=== PATIENT | female | born 1995 | race Two or more races ===

== ENCOUNTER 2016-03-24 18:36 | Emergency (ER) | payer MEDICAID, OTHER ==
[~2016-03-24] VITALS: Ht 177.8 cm; Wt 76.5 kg
[~2016-03-24 18:36] MED LIST: FER325 PO; PEN500 PO; PREN-39 PO; TRAM50TA2 PO
[2016-03-24 19:03] VITALS: Ht 177.8 cm; Wt 76.5 kg
[2016-03-24] MEDS ORDERED: AMOX1TAB10 PO (20:27)
[2016-03-24] MEDS ORDERED: IBUP-1542 PO (20:27)
[2016-03-24] MEDS ORDERED: AMOXICILLIN/CLAV 875 MG TAB PO ONE (20:30)
[2016-03-24] MEDS ORDERED: DIPHTH/TET/ACEL PERTUSS (ADULT) 0.5 ML VIAL IM* ONE (20:30)
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
== END 2016-03-24 20:39 | disposition home or self-care (01) ==
LOC: FTE 18:36
DX: S21.052A Open bite of left breast, initial encounter (principal); S61.552A Open bite of left wrist, initial encounter; S41.152A Open bite of left upper arm, initial encounter; Y04.1XXA Assault by human bite, initial encounter; Z23 Encounter for immunization; Z87.891 Personal history of nicotine dependence
CPT/HCPCS: 90471; 90715; Z7502; Z7610

== ENCOUNTER 2016-09-01 17:55 | Emergency (ER) | payer MEDICAID, OTHER ==
[~2016-09-01] VITALS: Ht 175.3 cm; Wt 94.0 kg
[~2016-09-01 17:55] MED LIST changes: +AMOX1TAB10 PO; +IBUP-1542 PO
[2016-09-01 17:58] VITALS: Ht 175.3 cm; Wt 94.0 kg
[2016-09-01] MEDS ORDERED: AMOX250C PO (18:11)
[2016-09-01] MEDS ORDERED: HYDR-906 PO (18:11)
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
== END 2016-09-01 18:11 | disposition home or self-care (01) ==
LOC: E/R 17:55
DX: K08.89 Other specified disorders of teeth and supporting structures (principal); Z87.891 Personal history of nicotine dependence
CPT/HCPCS: 99284

== ENCOUNTER 2016-10-15 21:26 | Outpatient (CLI) | payer OTHER ==
[~2016-10-15] VITALS: Ht 175.3 cm; Wt 102.8 kg
[~2016-10-15 21:26] MED LIST changes: +AMOX250C PO; +HYDR-906 PO
[2016-10-15 21:44] VITALS: Ht 175.3 cm; Wt 102.8 kg
--- NOTE | 2016-10-15 22:09 | RADRPT ---
PROCEDURE: Obstetrical ultrasound for biophysical profile CLINICAL INDICATION: Biophysical profile. . TECHNIQUE: Obstetrical ultrasound of the uterus for biophysical profile. Transabdominal views are obtained. COMPARISON: 03/19/2015 FINDINGS: Single intrauterine gestation. Presentation: Cephalic. Placenta: Fundal No evidence of placental abruption. No evidence of placenta previa. breathing movement = 2/2 tone = 2/2 motion = 2/2 LINH = 2/2 LINH = 15.5 cm heart rate: 127 beats per minute IMPRESSION: Single intrauterine gestation. Biophysical profile 10/21 RPTAT: AADD .Minh Levi MD, MD Date Time Electronically viewed and signed by .Minh Levi MD, on 10/15/2016 22:08 .B/
[2016-10-15 23:15] LABS: ADD UMIC YES; UR ASCORBIC ACID NEGATIVE (NEGATIVE); UR BILIRUBIN (Dip) NEGATIVE (NEGATIVE); UR BLOOD (Dip) NEGATIVE (NEGATIVE); UR CLARITY SLIGHTLY CLOUDY (CLEAR); UR COLOR YELLOW (YELLOW); UR GLUCOSE (Dip) NEGATIVE (NEGATIVE); UR KETONES (Dip) 1+ mg/dL (NEGATIVE); UR LEUKOCYTE ESTERASE (Dip) 1+ Leu/ul (NEGATIVE); UR MUCUS FEW /HPF (NONE SEEN); UR NITRITE (Dip) NEGATIVE (NEGATIVE); UR RBC 1 /HPF (0-5); UR SPECIFIC GRAVITY (Dip) 1.031 (1.003-1.030); UR SQUAMOUS EPITHELIAL CELL MODERATE /HPF (FEW); UR TOTAL PROTEIN (Dip) 2+ mg/dl (NEGATIVE); UR UROBILINOGEN (Dip) NEGATIVE (NEGATIVE)
--- NOTE | 2016-10-15 23:17 | PN ---
Triage Information Date/Time 20 years old with IUP at 37 weeks and care with [facility] and low KYUNG-was sent to Triage for NST/ BPP. Patient had abnormal serum integrated testing concerning for possible risk for Down syndrome status post genetic counseling and ultrasound by maternal medicine specialist. She declined amniocentesis. Was recommended to continue NST/BPP twice a week. Had a recent ultrasound with perinatologist that showed normal interval growth Denies any vaginal bleeding, LOF or decreased movement. Patient has no other complaint Reason for visit: testing Weeks of Gestation 37 weeks /Para Diabetes: none Hypertention: none Objective Heart Rate: 130's Contractions: None Exam heart tracing: Category 1 initially contractions every 2-3 minutes Initially contractions every 3-4 minutes noted that resolved. Patient did not feel any contractions LINH: 15.5 BPP: 10/21 Assessment/Plan IUP at 37 weeks Low PaPPA,. Abnormal serum integrated testing. Increased risk for Down syndrome Status post genetic counseling declined amniocentesis. no evidence of IUGR preeclampsia Normal interval growth NST BPP reassuring Patient will be discharged home labor precaution and kick counts and follow-up with her OB clinic for testing twice a week discussed with the patient Patient had a history of . Plan to have repeat Patient verbalized understanding All questions were answered SALAS LOMAS MD Oct 15, 2016 23:13
--- NOTE | 2016-10-15 23:35 | TRIAGE ---
OB Triage Datetime Report Generated by CPN: 10/15/2016 23:34 Datetime: 10/15/2016 23:12 Stage of : OB Triage Datetime: 10/15/2016 22:06 Assessment Type: Triage Maternal Assessment Level of Consciousness: Fully Conscious Headache: Denies Blurred Vision: No Respiratory Effort: Unlabored; Regular Rhythm; Equal Expansion Nausea/Vomiting: Denies RUQ Epigastric Pain: Denies Facial Edema: None Fall Risk Assessment History of Falling: (0) No Secondary Diagnosis: (0) No Ambulatory Aid: (0) Bedrest/Nurse Assist IV Therapy: (0) No Gait: (0) Normal/Bedrest/Immobile Mental Status: (0) Oriented to Own Ability Fall Score: 0 Fall Risk Score Definition: No Risk: No action required Datetime: 10/15/2016 22:05 EGA: 37.6 Datetime: 10/15/2016 22:04 Time of Arrival: 10/15/2016 21:25 Arrived By: Ambulatory Arrived From: Home Chief Complaint: SENT IN FROM CLINIC FOR LINH/BPP, PT. STARTING NST CLNIC FOR LOW KYUNG-A Movement: Present Contractions: Denies/Absent Rupture of Membranes: Denies Vaginal Discharge: Denies Recent Sexual Intercouse: Denies Abdominal Trauma: Not Applicable Patient Complaints: None Time Provider Notified: 10/15/2016 22:20 Provider Notified: ABEBE Initial Plan: MASSIMO LE, CALL OB
== END 2016-10-15 23:12 | disposition home or self-care (01) ==
LOC: OBT 21:26 → L-D 21:28 → OBT 23:12
PROVIDERS: ATTEND Obstetrics & Gynecology
DX: O28.1 Abnormal biochemical finding on antenatal screening of mother (principal)
CPT/HCPCS: 76818; 81001; Z7500; G0463

== ENCOUNTER 2016-10-21 17:02 | Inpatient (IN) | payer OTHER ==
[~2016-10-21] VITALS: Ht 175.3 cm; Wt 104.2 kg
[~2016-10-21 17:02] MED LIST changes: -AMOX1TAB10 PO; -AMOX250C PO; -FER325 PO; -HYDR-906 PO; -IBUP-1542 PO; -PEN500 PO; -TRAM50TA2 PO
[2016-10-21 17:53] VITALS: BP 126/71; PULSE 75; RESP 16; Ht 175.3 cm; Wt 104.2 kg
[2016-10-21] MEDS ORDERED: RTPRO5 IH (17:56)
[2016-10-21] MEDS ORDERED: LACTATED RINGER'S 1,000 ML IV SCH (18:28)
[2016-10-21] MEDS ORDERED: OXYTOCIN 30 UNITS/LR 500 ML IV PRN ×2 (18:30→23:30)
[2016-10-21] MEDS ORDERED: MISOPROSTOL 200 MCG TAB PR PRN ×2 (18:30→23:30)
[2016-10-21] MEDS ORDERED: METHYLERGONOVINE 0.2 MG INJ IM PRN ×2 (18:30→23:30)
[2016-10-21] MEDS ORDERED: CARBOPROST 250 MCG INJ IM PRN ×2 (18:30→23:30)
[2016-10-21] MEDS ORDERED: OXYTOCIN 30 UNITS/LR 500 ML IV SCH (18:30)
[2016-10-21] MEDS ORDERED: CEFAZOLIN 2 GM/50 ML (PMX) 50 ML IV SCH (18:30)
--- NOTE | 2016-10-21 18:43 | TRIAGE ---
OB Triage Datetime Report Generated by CPN: 10/21/2016 18:43 Datetime: 10/21/2016 18:20 Labor Evaluation Frequency: occ Monitor Mode: External Duration (sec)2399: 50-60 Quality: Mild Pattern: Normal: <= 5 Contractions in 10 Minutes Resting Tone Knowles: Relaxed Heart Rate FHR Baseline Rate: 125 Monitor Mode: External US Variability: Moderate 6-25 bpm Accelerations: 15X15 Decelerations: Prolonged Category: Category II Pain Assessment Pain Scale: 5 Pain Presence: Intermittent Pain Type: Sharp Pain Location: Back; Left Leg Pain Goal: 3 Datetime: 10/21/2016 17:45 Assessment Type: Triage Maternal Assessment Level of Consciousness: Fully Conscious DTR's/Clonus: DTRs 2+; No Clonus Headache: Denies Blurred Vision: No Respiratory Effort: Unlabored; Regular Rhythm; Equal Expansion Breath Sounds, Left: Clear and Equal Breath Sounds, Right: Clear and Equal Nausea/Vomiting: Denies RUQ Epigastric Pain: Denies Lower Extremities Edema: None Degree: None Upper Extremities Edema: None Degree: None Facial Edema: None Fall Risk Assessment History of Falling: (0) No Secondary Diagnosis: (0) No Ambulatory Aid: (0) Bedrest/Nurse Assist IV Therapy: (0) No Gait: (0) Normal/Bedrest/Immobile Mental Status: (0) Oriented to Own Ability Fall Score: 0 Fall Risk Score Definition: No Risk: No action required Datetime: 10/21/2016 17:41 Time of Arrival: 10/21/2016 17:00 EGA: 38.5 Arrived By: Ambulatory Arrived From: Home Chief Complaint: Pt. came to hospital c/o left low back sharp pain, radiated to left leg, lower ab dominal pain since last night, pain getting worse when walking and moving Movement: Present Contractions: Denies/Absent Rupture of Membranes: Denies Vaginal Bleeding: None Vaginal Discharge: Denies Recent Sexual Intercouse: Denies Abdominal Trauma: Not Applicable Patient Complaints: Back Pain Time Provider Notified: 10/21/2016 17:45 Provider Notified: Datetime: 10/15/2016 22:06 Fall Score: 0 Fall Risk Score Definition: No Risk: No action required Datetime: 10/15/2016 22:05 EGA: 37.6
[2016-10-21] MEDS ORDERED: CEFAZOLIN 1 GM INJ ONE (18:45)
[2016-10-21 18:56] LABS: BASOPHILS % 0.2 % (0.0-2.0); EOSINOPHILS # 0.4 10^3/ul (0.0-0.5); EOSINOPHILS % 2.8 % (0.0-7.0); HEMATOCRIT 36.5 % (37.0-47.0); HEMOGLOBIN 12.8 g/dl (12.0-16.0); LYMPHOCYTES # 1.8 10^3/ul (0.8-2.9); LYMPHOCYTES % 13.5 % (18.0-55.0); MEAN CORPUSCULAR HEMOGLOBIN 33.2 pg (29.0-33.0); MEAN CORPUSCULAR HGB CONC 35.1 g/dl (32.0-37.0); MEAN CORPUSCULAR VOLUME 94.6 fl (72.0-104.0); MEAN PLATELET VOLUME 11.6 fl (7.4-10.4); MONOCYTE # 1.2 10^3/ul (0.3-0.9); MONOCYTES % 8.9 % (0.0-13.0); NEUTROPHIL # 9.6 10^3/ul (1.6-7.5); NEUTROPHILS % 73.5 % (30.0-74.0); PLATELET COUNT 144 10^3/UL (140-415); RED BLOOD COUNT 3.86 10^6/ul (4.20-5.40); RED CELL DISTRIBUTION WIDTH 12.5 % (11.5-14.5); WHITE BLOOD COUNT 13.1 10^3/ul (4.8-10.8)
[2016-10-21] MEDS ORDERED: CITRIC ACID/NA CITRATE 30 ML CUP ONE (18:59)
[2016-10-21] MEDS ORDERED: ONDANSETRON 4 MG INJ IV ONE (19:00)
[2016-10-21] MEDS ORDERED: CITRIC ACID/NA CITRATE 30 ML CUP PO ONE (19:00)
[2016-10-21] MEDS ORDERED: morphine SULFATE/PF (10 MG/10 ML) INJ ONE (19:04)
[2016-10-21] MEDS ORDERED: OXYTOCIN 10 UNIT INJ ONE (19:05)
[2016-10-21] MEDS ORDERED: PHENYLephrine (100 MCG/ML) 5ML SYG ONE (19:05)
[2016-10-21 19:16] LABS: INR 0.92; PROTIME 12.4 Sec (12.2-14.2)
--- NOTE | 2016-10-21 19:30 | HP ---
Date/Time of Note Date/Time of Note DATE: 10/21/16 TIME: 19:19 OB - History Hx of Present Free Text/Dictation 20 years old female 2 para 1 EDC October 30, 2016 history of previous C- section in labor admitted to [facility] being prepared to undergo repeat section while patient was being monitored noted there was a 3 minutes variable deceleration with recovery to base line This patient has been under the care of the [facility] and her is not complicated with gestational diabetes - induced hypertension or any other condition Chief Complaint: 38 weeks 5 days history of previous in labor Estimated Due Date: Oct 30, 2016 : 2 Para: 1 Care: Good Care Medical Complications: None Past Family/Social History * Past Medical, Surgical, Family and Obstetric Histories reviewed from chart. Rubella: immune RPR/VDRL: Negative GBS Status: Negative HBsAG: Negative OB Admission Exam Vital Signs Vital Signs Vital Signs Date Time Temp Pulse Resp B/P Pulse Ox O2 Delivery O2 Flow Rate FiO2 10/21/16 17:53 98.3 75 16 126/71 Physical Exam HEENT: WNL Heart: Rhythm Normal Lungs: Clear, Equal Station: -2 Membranes: Intact Heart Rate: 120's Accelerations: Accelerations Present Decelerations: Variable Decelerations Varibility: Moderate Contractions on Admission: >10 Minutes Apart Intensity: Moderate Last 72 hours Lab Results CBC & BMP 10/21/16 18:00 OB Assessment/Plan Reason for admission: other (Reglan 384/7 weeks history of previous in the) Induction Method: other (38-1/2 weeks previous section in labor) MORGAN GREENWOOD MD Oct 21, 2016 19:29
[2016-10-21 19:36] LABS: BARBITURATES Negative (NEGATIVE); BENZODIAZEPINES Negative (NEGATIVE); CANNABINOIDS Negative (NEGATIVE); COCAINE Negative (NEGATIVE); OPIATES Negative (NEGATIVE)
[2016-10-21] MEDS ORDERED: METOCLOPRAMIDE 10 MG INJ ONE (19:49)
[2016-10-21] MEDS ORDERED: ONDANSETRON 4 MG INJ ONE (19:49)
[2016-10-21] MEDS ORDERED: KETOROLAC 30 MG INJ ONE (19:50)
[2016-10-21] MEDS ORDERED: DEXAMETHASONE 4 MG/ML 1 ML INJ ONE (19:50)
[2016-10-21] MEDS ORDERED: morphine 2 MG INJ IV PRN (20:00)
[2016-10-21] MEDS ORDERED: EPHEDrine SULFATE 50 MG/5 ML SYG IV PRN (20:00)
[2016-10-21] MEDS ORDERED: MEPERIDINE 25 MG INJ IV PRN (20:00)
[2016-10-21] MEDS ORDERED: OXYCODONE/ACETAMINOPHEN (5/325) TAB PO PRN ×2 (20:00)
[2016-10-21] MEDS ORDERED: HYDROmorphONE 1 MG/ML SYG IV PRN ×2 (20:00)
[2016-10-21] MEDS ORDERED: LABETALOL HCL 20MG INJ IV PRN (20:00)
[2016-10-21] MEDS ORDERED: ONDANSETRON 4 MG INJ IV PRN (20:00)
[2016-10-21] MEDS ORDERED: DIPHENHYDRAMINE 50 MG INJ IV PRN ×2 (20:00)
[2016-10-21] MEDS ORDERED: morphine 4 MG/ML VIAL IV PRN (20:00)
[2016-10-21] MEDS ORDERED: NALBUPHINE HCL (10 MG/1 ML) INJ IV PRN (20:00)
[2016-10-21] MEDS ORDERED: NALOXONE (0.4 MG/ML) INJ IV PRN (20:00)
[2016-10-21] MEDS ORDERED: ACETAMINOPHEN 500 MG TAB PO PRN (20:00)
--- NOTE | 2016-10-21 20:15 | OPR ---
Operative Report Planned Procedure Free Text/Dictation 20 years old 2 para 1 EDC October 20 history of previous admitted at [facility] in labor Procedure date Oct 21, 2016 Procedure(s) Repeat Performed by: MORGAN GREENWOOD MD Assisting provider: FRANKI TAY MD Anesthesiologist: SOFIE LEE MD Pre-procedure diagnosis 38-1/2 weeks history of previous in labor Anesthesia Type: spinal Procedure Description Under satisfactory spinal [] anesthesia, the patient was prepped and draped and placed in a supine position, tilted to the left. Pfannenstiel incision was made , carried through the subcutaneous tissue. Bleeders brought under control with electrocautery. Fascia incised to the length of the incision. Rectus muscles from the fascia, divided midline. Peritoneum exposed, entered through a transverse incision. Exploration of abdomen revealed gravid uterus. Normal- appearing tubes and ovaries bladder flap was developed. Transverse incision was made in the lower segment of the uterus. Amniotic sac ruptured. Clear [] amniotic fluid noted. Light baby girl was delivered from l occiput posterior position Nasal oropharyngeal suction was performed. The baby was handed to the team for immediate attention patient received 20 units of Pitocin. Th placenta was delivered manually intact. Uterine cavity was cleaned with wet sponge and drainage established. Uterus closed in 2 layers using [] Monocryl #1 in continuous fashion. Peritoneal cavity irrigated with warm saline. Sponge, needle and instrument count reported to be correct. Abdominal peritoneum closed with 2-0 chromic catgut [] continuously. Rectus muscle approximated with [2-0 chromic cat]. Fascia closed with [#1 PDA] subcutaneous tissue approximated and repaired with interrupted 2-0 chromic catgut, skin closed with angela. Estimated blood loss 600 []mL. Urine bag contained [200]mL of clear urine patient tolerated procedure well transferred to recovery room in good condition Post-Procedure Findings: Live Baby girl 9 and9 Complications: None Pt Condition post procedure: stable Physician Certification I, the undersigned physician, hereby certify that I have discussed the procedure described in this consent form with this patient (or the patient's legal veterans contact representative), including: * The risk and benefits of the procedure; * Any adverse reactions that may reasonably be expected to occur; * Any alternative efficacious methods of treatment which may be medically viable ; * The potential problems that may occur during recuperation; * Potential for blood transfusion and associated risks/benefits; and * Any research or economic interest I may have regarding this treatment. I further certify that the patient/legally responsible person was encouraged to ask question and that all questions were answered. MORGAN GREENWOOD MD Oct 21, 2016 20:15
[2016-10-21 22:55] VITALS: BP 133/83; PULSE 66; RESP 19
[2016-10-21 23:30] VITALS: BP 128/74; PULSE 70
[2016-10-21] MEDS ORDERED: LANOLIN 7 GM TUBE TOP PRN (23:30)
[2016-10-21] MEDS ORDERED: CEFAZOLIN 1 GM/50 ML (PMX) 50 ML IVPB SCH (23:30)
[2016-10-21] MEDS: OXYTOCIN 30 UNITS/LR 500 ML IV SCH (23:32)
[2016-10-22 01:00] VITALS: BP 121/59; PULSE 68
[2016-10-22 02:00] VITALS: BP 118/68; PULSE 67; RESP 19
[2016-10-22] MEDS: OXYTOCIN 30 UNITS/LR 500 ML IV SCH ×4 (03:28→15:00)
[2016-10-22 04:00] VITALS: BP 113/65; PULSE 63; RESP 20
[2016-10-22] MEDS: KETOROLAC 30 MG INJ IV PRN ×3 (04:38→18:09)
[2016-10-22 08:00] VITALS: BP 104/60; PULSE 69; RESP 18
[2016-10-22 10:20] LABS: BASOPHILS % 0.2 % (0.0-2.0); EOSINOPHILS % 0.2 % (0.0-7.0); HEMATOCRIT 31.4 % (37.0-47.0); HEMOGLOBIN 10.9 g/dl (12.0-16.0); LYMPHOCYTES # 1.3 10^3/ul (0.8-2.9); LYMPHOCYTES % 7.4 % (18.0-55.0); MEAN CORPUSCULAR HEMOGLOBIN 32.4 pg (29.0-33.0); MEAN CORPUSCULAR HGB CONC 34.7 g/dl (32.0-37.0); MEAN CORPUSCULAR VOLUME 93.5 fl (72.0-104.0); MEAN PLATELET VOLUME 11.6 fl (7.4-10.4); MONOCYTE # 1.2 10^3/ul (0.3-0.9); NEUTROPHIL # 14.8 10^3/ul (1.6-7.5); NEUTROPHILS % 84.2 % (30.0-74.0); PLATELET COUNT 131 10^3/UL (140-415); RED BLOOD COUNT 3.36 10^6/ul (4.20-5.40); RED CELL DISTRIBUTION WIDTH 12.3 % (11.5-14.5); WHITE BLOOD COUNT 17.6 10^3/ul (4.8-10.8)
[2016-10-22 10:22] LABS: POSITIVE DIFF @See below
[2016-10-22] MEDS ORDERED: ONDANSETRON 4 MG INJ IV PRN (12:00)
[2016-10-22 16:45] VITALS: BP 112/55; PULSE 61; RESP 18
[2016-10-22] MEDS ORDERED: HYDROCODONE/APAP (5/325) TAB PO PRN ×2 (19:05)
[2016-10-22] MEDS ORDERED: OXYCODONE/ACETAMINOPHEN (5/325) TAB PO PRN (19:05)
--- NOTE | 2016-10-22 19:39 | OPPN ---
Date/Time of Note Date/Time of Note DATE: 10/22/16 TIME: 19:38 Post-Anesthesia Notes Post-Anesthesia Note Last documented vital signs Vital Signs Date Time Temp Pulse Resp B/P Pulse Ox O2 Delivery O2 Flow Rate FiO2 10/22/16 18:33 Room Air 10/22/16 17:20 98 21 10/22/16 16:45 98.2 61 18 112/55 Activity: WNL Respiratory function: WNL Cardiovascular function: WNL Mental status: Baseline Pain reasonably controlled: Yes Hydration appropriate: Yes Nausea/Vomiting absent: Yes SOFIE LEE MD Oct 22, 2016 19:39
[2016-10-22 20:00] VITALS: BP 111/65; PULSE 55; RESP 20
[2016-10-22] MEDS: SENNA/DOCUSATE NA (8.6MG/50MG) TAB PO SCH (20:46)
[2016-10-22] MEDS: OXYCODONE/ACETAMINOPHEN (5/325) TAB PO PRN (21:33)
[2016-10-22] MEDS: IBUPROFEN 600 MG TAB PO SCH (23:31)
[2016-10-23] MEDS ORDERED: ALBUTEROL 18 GM INHALER INH PRN
[2016-10-23] MEDS: OXYCODONE/ACETAMINOPHEN (5/325) TAB PO PRN ×4 (01:34→19:55)
[2016-10-23 04:00] VITALS: BP 111/55; PULSE 64; RESP 18
[2016-10-23] MEDS: IBUPROFEN 600 MG TAB PO SCH ×4 (05:40→23:31)
[2016-10-23 07:45] VITALS: BP 135/78; PULSE 56; RESP 18
[2016-10-23] MEDS: OXYTOCIN 30 UNITS/LR 500 ML IV SCH ×5 (08:18→18:43)
[2016-10-23] MEDS: SENNA/DOCUSATE NA (8.6MG/50MG) TAB PO SCH ×2 (09:19→21:21)
--- NOTE | 2016-10-23 11:43 | PN ---
Date/Time of Note Date/Time of Note DATE: 10/23/16 TIME: 11:42 OB Subjective Subjective Subjective October 23, 2016 Post C section day 2 Doing Well Afebrile Ambulatory Chest Clear Breasts are soft , Nipples are intact Abdomen is soft Fundus is firm Moderate amount of lochia Incision is clean ,No evidence of infection No calf tenderness No ankle edema New born is doing well, Breast feeding Current Medications Medications (Trade) Dose Ordered Sig/Michela Route PRN Reason Start Time Stop Time Status Last Admin Dose Admin Lactated Ringer's 1,000 ml @ 125 mls/hr Q8H IV 10/21/16 18:28 10/21/16 23:09 DC 10/21/16 18:51 Cefazolin Sodium/ Dextrose 50 ml @ 100 mls/hr ONCE IV 10/21/16 18:30 10/21/16 23:09 DC Oxytocin/Lactated Ringer's 500 ml @ 125 mls/hr ONCE IV 10/21/16 18:30 10/21/16 23:09 DC 10/21/16 20:36 Oxytocin/Lactated Ringer's 500 ml @ 0 mls/hr ONCE PRN IV For Hemorrhage Management 10/21/16 18:30 10/21/16 23:09 DC Methylergonovine Maleate (Methergine) 0.2 mg ONCE PRN IM VAGINAL BLEEDING 10/21/16 18:30 10/21/16 23:09 DC Carboprost Tromethamine (Hemabate) 250 mcg ONCE PRN IM VAGINAL BLEEDING 10/21/16 18:30 10/21/16 23:09 DC Misoprostol (Cytotec) 1,000 mcg ONCE PRN IA VAGINAL BLEEDING 10/21/16 18:30 10/21/16 23:09 DC Ondansetron HCl (Zofran Inj) 4 mg pre-procedure ONCE IV 10/21/16 19:00 10/21/16 19:03 DC Citric Acid/ Sodium Citrate (Bicitra) 30 ml PRE-OP ONCE PO 10/21/16 19:00 10/21/16 19:03 DC 10/21/16 19:04 Citric Acid/ Sodium Citrate (Bicitra) 30 ml STK-MED ONCE .ROUTE 10/21/16 18:59 10/21/16 19:00 DC Morphine Sulfate (Duramorph) 10 mg STK-MED ONCE .ROUTE 10/21/16 19:04 10/21/16 19:05 DC Oxytocin (Oxytocin) 10 units STK-MED ONCE .ROUTE 10/21/16 19:05 10/21/16 19:06 DC Phenylephrine HCl (Ej-Synephrine Inj Syg) 500 mcg STK-MED ONCE .ROUTE 10/21/16 19:05 10/21/16 19:06 DC Oxycodone/ Acetaminophen (Percocet (5/ 325)) 1 tab PACU ORDER PRN PO PAIN LEVEL 1-5 10/21/16 20:00 10/21/16 23:09 DC Oxycodone/ Acetaminophen (Percocet (5/ 325)) 2 tab PACU ORDER PRN PO PAIN LEVEL 6-10 10/21/16 20:00 10/21/16 23:09 DC Ondansetron HCl (Zofran Inj) 4 mg PACU ORDER PRN IV NAUSEA AND/OR VOMITING 10/21/16 20:00 10/22/16 03:00 DC 10/21/16 23:05 Labetalol HCl (Labetalol) 5 mg PACU ORDER PRN IV HIGH BLOOD PRESSURE 10/21/16 20:00 10/21/16 23:09 DC Ephedrine Sulfate 5 mg PACU ORDER PRN IV MAP LESS THAN 60 10/21/16 20:00 10/21/16 23:09 DC Meperidine HCl (Demerol) 25 mg PACU ORDER PRN IV POST-OP RIGORS 10/21/16 20:00 10/21/16 23:09 DC Diphenhydramine HCl (Benadryl) 25 mg PACU ORDER PRN IV PRURITUS 10/21/16 20:00 10/21/16 23:09 DC 10/21/16 20:35 Hydromorphone HCl (Dilaudid) 0.2 mg Q2H PRN IV PAIN LEVEL 1-5 10/21/16 20:00 10/22/16 19:04 DC 10/21/16 21:27 Hydromorphone HCl (Dilaudid) 0.4 mg Q2H PRN IV PAIN LEVEL 6-10 10/21/16 20:00 10/22/16 19:04 DC Morphine Sulfate (morphine) 2 mg Q2H PRN IV PAIN LEVEL 1-5 10/21/16 20:00 10/22/16 19:04 DC Morphine Sulfate (morphine) 4 mg Q2H PRN IV PAIN LEVEL 6-10 10/21/16 20:00 10/22/16 19:04 DC Ketorolac Tromethamine (Toradol) 30 mg Q6H PRN IV PAIN LEVEL 6-10 10/21/16 20:00 10/22/16 19:04 DC 10/22/16 18:09 Acetaminophen (Tylenol Tab) 500 mg Q4H PRN PO PAIN LEVEL 1-3 10/21/16 20:00 10/21/16 23:09 DC Diphenhydramine HCl (Benadryl) 25 mg Q4H PRN IV PRURITUS 10/21/16 20:00 10/22/16 19:04 DC Nalbuphine HCl (Nubain) 10 mg Q4H PRN IV PRURITUS 10/21/16 20:00 10/22/16 19:04 DC Naloxone HCl (Narcan) 0.2 mg Q2M PRN IV FOR RESP RATE 8 OR LESS 10/21/16 20:00 10/22/16 19:04 DC Miscellaneous Information (* Miscellaneous Pharmacy Order) DURAMORPH: 0.2 MG SPI... GIVEN NEURAXIAL XX 10/21/16 20:00 10/21/16 23:09 DC Ondansetron HCl (Zofran Inj) 4 mg STK-MED ONCE .ROUTE 10/21/16 19:49 10/21/16 19:50 DC Metoclopramide HCl (Reglan) 10 mg STK-MED ONCE .ROUTE 10/21/16 19:49 10/21/16 19:50 DC Ketorolac Tromethamine (Toradol) 30 mg STK-MED ONCE .ROUTE 10/21/16 19:50 10/21/16 19:51 DC Dexamethasone (Decadron) 4 mg STK-MED ONCE .ROUTE 10/21/16 19:50 10/21/16 19:51 DC Acetaminophen/ Hydrocodone Bitart (Meridian (5/325)) 1 tab Q4H PRN PO PAIN LEVEL 4-6 10/22/16 19:05 Acetaminophen/ Hydrocodone Bitart (Meridian (5/325)) 2 tab Q4H PRN PO PAIN LEVEL 7-10 10/22/16 19:05 Oxycodone/ Acetaminophen (Percocet (5/ 325)) 1 tab Q4H PRN PO PAIN LEVEL 4-6 10/22/16 19:05 Oxycodone/ Acetaminophen (Percocet (5/ 325)) 2 tab Q4H PRN PO PAIN LEVEL 7-10 10/22/16 19:05 10/23/16 07:18 Ibuprofen (Motrin) 600 mg Q6 PO 10/23/16 00:00 10/23/16 11:31 Simethicone (Mylicon) 160 mg Q8H PRN PO DISTENSION/GAS/BLOATING 10/21/16 23:30 Senna/Docusate Sodium (Senokot-S) 1 tab BID PO 10/22/16 21:00 10/23/16 09:19 Lanolin (Fda-F-Pxglbw) 1 applic BEDSIDE MEDICATION PRN TOP BEDSIDE FOR NICOLAS TO NIPPLES 10/21/16 23:30 10/22/16 04:39 Diphtheria/ Tetanus/Acell Pertussis 0.5 ml 0.5 ml ONCE ONCE IM* 10/24/16 09:00 10/24/16 09:01 Oxytocin/Lactated Ringer's 500 ml @ 0 mls/hr ONCE PRN IV For Hemorrhage Management 10/21/16 23:30 Methylergonovine Maleate (Methergine) 0.2 mg ONCE PRN IM VAGINAL BLEEDING 10/21/16 23:30 Carboprost Tromethamine (Hemabate) 250 mcg ONCE PRN IM VAGINAL BLEEDING 10/21/16 23:30 Misoprostol 1000 mcg 1,000 mcg ONCE PRN IA VAGINAL BLEEDING 10/21/16 23:30 Cefazolin Sodium 50 ml @ 100 mls/hr ONCE IVPB 10/21/16 23:30 10/21/16 23:59 DC 10/21/16 23:48 Oxytocin/Lactated Ringer's 500 ml @ 125 mls/hr Q4H IV 10/21/16 23:04 10/22/16 15:00 Ondansetron HCl (Zofran Inj) 4 mg Q4H PRN IV NAUSEA AND/OR VOMITING 10/22/16 12:00 10/22/16 12:16 Cefazolin Sodium (Ancef) 2 gm STK-MED ONCE .ROUTE 10/21/16 18:45 10/22/16 17:07 DC Albuterol (Ventolin Hfa) 2 puff Q2H RESP THERAPY PRN INH WHEEZING AND RESP DISTRESS 10/23/16 00:00 REENA FORBES MD Oct 23, 2016 11:43
[2016-10-23 16:15] VITALS: BP 143/74; PULSE 64; RESP 18
[2016-10-23 19:55] VITALS: BP 124/74; PULSE 66; RESP 18
[2016-10-24] MEDS: OXYTOCIN 30 UNITS/LR 500 ML IV SCH ×2 (00:15→05:07)
[2016-10-24] MEDS: OXYCODONE/ACETAMINOPHEN (5/325) TAB PO PRN ×3 (00:54→14:05)
[2016-10-24 03:50] VITALS: BP 115/63; PULSE 69; RESP 19
[2016-10-24] MEDS: IBUPROFEN 600 MG TAB PO SCH ×2 (05:36→12:00)
[2016-10-24 08:30] VITALS: BP 120/64; PULSE 68; RESP 16
[2016-10-24] MEDS: SENNA/DOCUSATE NA (8.6MG/50MG) TAB PO SCH (08:30)
[2016-10-24] MEDS ORDERED: DIPHTH/TET/ACEL PERTUSS (ADULT) 0.5 ML VIAL IM* ONE (09:00)
--- NOTE | 2016-10-24 09:49 | PD.PPDC ---
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
--- NOTE | 2016-10-24 09:52 | DS ---
Date/Time of Note Date/Time of Note DATE: 10/24/16 TIME: 09:50 Discharge Summary Admission/Discharge Info Admit Date/Time Oct 21, 2016 at 18:20 Discharge Date/Time October 24, 2016 at 9:45 AM Discharge Diagnosis Post date 3 Patient Condition: Good Procedures Repeat Hx of Present Illness Term previous Hospital Course Satisfactory recovery uneventful Home Meds Reported Medications Albuterol Sulfate (Albuterol Sulfate) 2.5 Mg/0.5 Ml Vial.neb, 2.5 MG IH 10/21/16 Vits W-Ca,Fe,Fa(<1MG) ( Vitamins) 1 Tab Tablet, 1 TAB PO, TAB 03/19/15 Follow-up Plan Post instructions given recommended to make appointment with [facility] in 1 week for post check Primary Care Provider [facility] Time spent on discharge: < 30 minutes MORGAN GREENWOOD MD Oct 24, 2016 09:52
== END 2016-10-24 16:22 | disposition home or self-care (01) | DRG 766 ==
LOC: OBT 17:02 → L-D 17:04 → OBT 18:20 → L-D 18:20 → PP1 22:55
PROVIDERS: ADMIT Obstetrics & Gynecology; ATTEND Obstetrics & Gynecology
PROC: 3E033VJ Introduction of Other Hormone into Peripheral Vein, Percutaneous Approach (ICD-10-PCS; 2016-10-21)
PROC: 10D00Z1 Extraction of Products of Conception, Low, Open Approach (ICD-10-PCS; principal; 2016-10-21 19:00)
DX: O34.211 Maternal care for low transverse scar from previous cesarean delivery (principal); Z37.0 Single live birth; Z3A.38 38 weeks gestation of pregnancy
CPT/HCPCS: 80307; 85025; 85610; 85730; 86592; 86850; 86900; 86901; 87340; 90715; 94760; 99464; G0463; J0690; J1100; J1170; J1200; J1885; J2274; J2370; J2405; J2590; J2765; J7120

== ENCOUNTER 2016-12-31 16:40 | Emergency (ER) | payer OTHER ==
[~2016-12-31] VITALS: Ht 170.2 cm; Wt 85.0 kg
[~2016-12-31 16:40] MED LIST changes: +RTPRO5 IH
[2016-12-31 16:54] VITALS: Ht 170.2 cm; Wt 85.0 kg
[2016-12-31] MEDS ORDERED: SOD CHLORIDE 0.9% 500 ML IV STA (16:54)
[2016-12-31] MEDS ORDERED: ALBUTEROL 0.083% (NEB) 2.5 MG/3 ML AMP HHN STA (16:54)
[2016-12-31] MEDS ORDERED: IPRATROPIUM (NEB) 0.5 MG/2.5 ML AMP HHN ONE (17:00)
--- NOTE | 2016-12-31 18:33 | RADRPT ---
PROCEDURE: Chest radiograph CLINICAL INDICATION: Chlorine gas exposure. Shortness of breath. COMPARISON: Radiograph 07/27/2007. TECHNIQUE: Single frontal chest radiograph. FINDINGS: The lungs are clear. No pleural effusion or focal parenchymal opacity. The cardiomediastinal silhouette is normal. No suspicious bone lesion. IMPRESSION: No acute cardiopulmonary abnormality. RPTAT: AA Physician Yahir Date Time Electronically viewed and signed by Gerald Lewis Physician on 12/31/2016 18:33 LG/
[2016-12-31] MEDS ORDERED: NAPR-688 PO (18:36)
[2016-12-31] MEDS ORDERED: ALBU18HF INHALATION (18:36)
--- NOTE | 2016-12-31 18:46 | ERD ---
ER Documentation Chief Complaint Date/Time DATE: 12/31/16 TIME: 18:38 Chief Complaint mixed bleech & amonia to clean bathroom 1hr ago, felt dizzy & nausea HPI This 21-year-old female brought into the emergency room for chest discomfort and shortness of breath as well as dizziness and nausea after mixing ammonia and bleach in a bathroom while she was cleaning. This occurred approximately 2 hours ago now. Does have a history of asthma. Symptoms were more moderated now are becoming a little more mild. ROS All systems reviewed and are negative except as per history of present illness. Medications Home Meds Active Scripts Naproxen* (Naproxen*) 500 Mg Tablet, 500 MG PO BID Y for PAIN, #14 TAB Prov:IVAN GOODMAN DO 12/31/16 Albuterol Sulfate* (Ventolin HFA*) 18 Gm Hfa.aer.ad, 2 PUFF INHALATION Q4H, #1 INHALER Prov:IVAN GOODMAN DO 12/31/16 Discontinued Reported Medications Albuterol Sulfate (Albuterol Sulfate) 2.5 Mg/0.5 Ml Vial.neb, 2.5 MG IH 10/21/16 Vits W-Ca,Fe,Fa(<1MG) ( Vitamins) 1 Tab Tablet, 1 TAB PO, TAB 03/19/15 Allergies Allergies: Coded Allergies: No Known Allergy (Unverified , 12/31/16) PMhx/Soc History of Surgery: Yes (C Section) Anesthesia Reaction: No Hx Neurological Disorder: No Hx Respiratory Disorders: No Hx Cardiac Disorders: No Hx Psychiatric Problems: No Hx Miscellaneous Medical Probl: No Hx Alcohol Use: No Hx Substance Use: No Hx Tobacco Use: Yes Smoking Status: Unknown if ever smoked Physical Exam Vitals Vital Signs Date Time Temp Pulse Resp B/P Pulse Ox O2 Delivery O2 Flow Rate FiO2 12/31/16 17:28 Nasal Cannula 2 12/31/16 17:28 Nasal Cannula 2.0 12/31/16 17:24 96 19 98 21 12/31/16 16:54 98.4 87 18 135/88 97 Physical Exam Const: [] Mild to moderate distress. Head: Atraumatic Eyes: Normal Conjunctiva, EOMI, PERRLA ENT: Normal External Ears, Nose and Mouth. Neck: Full range of motion..~ No meningismus. Resp: Mild right-sided expiratory wheeze that vanishes on further breathing. No respiratory distress Cardio: Regular rate and rhythm, no murmurs Abd: Soft, non tender, non distended. Normal bowel sounds Skin: No petechiae or rashes Ext: No cyanosis, or edema Neur: Awake and alert oriented 3, cranial nerves II through XII intact, no cerebellar deficits, normal gait Psych: Normal Mood and Affect Results 24 hrs Current Medications Medications (Trade) Dose Ordered Sig/Michela Route PRN Reason Start Time Stop Time Status Last Admin Dose Admin Sodium Chloride (NS) 500 ml @ 500 mls/hr Q1H STAT IV 12/31/16 16:54 12/31/16 17:53 DC 12/31/16 17:22 Albuterol (Proventil 0.083% (Neb)) 5 mg ONCE STAT HHN 12/31/16 16:54 12/31/16 17:00 DC 12/31/16 17:18 Ipratropium [place] (Atrovent 0.02% (Neb)) 0.5 mg ONCE ONCE HHN 12/31/16 17:00 12/31/16 17:01 DC 12/31/16 17:18 Procedures/MDM Inhalation exposure to chloramine gas with resolving symptoms. Chest x-ray was done the patient was put on a monitor and put on oxygen. An IV normal saline and albuterol Atrovent breathing treatment. She began feeling much better afterward. She still has some mild residual "lung discomfort:. She is taking large amount of p.o. fluids in the emergency room and ambulating well. She has been monitored for 2 hours. I did speak to poison control who stated that with regular household chemicals a mixture of bleach and Windex cause irritation but it do not see any reason to get laboratories are to monitor for any certain amount of time after the patient is stable. Going to discharge with primary care follow-up and strict return cautious to the ER. Chest x-ray interpretation: I see no acute process, I see no irregular parenchymal markings, no infiltrates, no pulmonary edema, no pneumothorax, no fractures. Monitor interpretation: Normal sinus rhythm without arrhythmia EKG interpretation: Normal sinus rhythm rate of 90, normal axis, no ST or T- wave changes concerning for acute ischemia, normal intervals. Normal EKG Departure Diagnosis: Primary Impression: Exposure to chemical inhalation Condition: Stable Patient Instructions: Chemical Inhalation Additional Instructions: Call your primary care doctor ALBERTOORROW for an appointment during the next 1-2 days.See the doctor sooner or return here if your condition worsens before your appointment time. IVAN GOODMAN DO Dec 31, 2016 18:46
[2016-12-31 19:43] VITALS: BP 128/80; PULSE 88; RESP 20; TEMP 98.5
== END 2016-12-31 19:44 | disposition home or self-care (01) ==
LOC: E/R 16:40
DX: T65.91XA Toxic effect of unspecified substance, accidental (unintentional), initial encounter (principal); R06.02 Shortness of breath; Z87.891 Personal history of nicotine dependence
CPT/HCPCS: 71010; 94664; J7040; Z7610

== ENCOUNTER 2017-01-29 01:31 | Emergency (ER) | payer SELFPAY ==
[~2017-01-29] VITALS: Ht 175.3 cm; Wt 95.0 kg
[~2017-01-29 01:31] MED LIST changes: +ALBU18HF INHALATION; +NAPR-688 PO; -PREN-39 PO; -RTPRO5 IH
[2017-01-29 01:41] VITALS: Ht 175.3 cm; Wt 95.0 kg
== END 2017-01-29 01:59 | disposition left against medical advice (07) ==
LOC: E/R 01:31
DX: Z53.21 Procedure and treatment not carried out due to patient leaving prior to being seen by health care provider (principal)

== ENCOUNTER 2018-12-07 14:13 | Emergency (ER) | payer OTHER ==
[~2018-12-07] VITALS: Ht 175.3 cm; Wt 77.4 kg
[~2018-12-07 14:13] MED LIST changes: +PRED20TA PO
[2018-12-07 15:00] VITALS: Ht 175.3 cm; Wt 77.4 kg
== END 2018-12-07 15:58 | disposition home or self-care (01) ==
LOC: E/R 14:13
DX: J45.901 Unspecified asthma with (acute) exacerbation (principal)
CPT/HCPCS: 99283